=== PATIENT | female | born 1980 | race African-American/Black ===

== ENCOUNTER 2018-01-06 10:35 | Emergency (ER) | payer OTHER ==
[2018-01-06 10:46] VITALS: BP 100/84; PULSE 76; TEMP 98; BMI 22.3
[2018-01-06] MEDS ORDERED: IBUPROFEN 600 MG TABLET (FP) PO ONE ×2 (11:52→11:53)
--- NOTE | 2018-01-06 11:57 | PDOC ---
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 States is never suffered from pollen or seasonal ALLERGIES however feels may have onset of same. Has taken no medications for relief of any of her symptoms. Denies fever, ear pain or sore throat pain. States headache is primarily frontal and sinus- like. Has congestion that worsens at night when she lies down. Denies numbness or tingling to hands or feet, no vomiting, is not the worst headache of her life. 01/06/18 11:53 Severity: Yes: mild, moderate Associated Symptoms: reports: denies symptoms Past History - Travel Traveled outside of the country in the last 30 days: No Close contact w/someone who was outside of country & ill: No - Past Medical History Allergies/Adverse Reactions: Allergies Allergy/AdvReac Type Severity Reaction Status Date / Time No Known Allergies Allergy Verified 01/06/18 10:41 Home Medications: Ambulatory Orders Cetirizine HCl [All Day Allergy] 10 mg PO DAILY #30 tablet 01/06/18 COPD: No - Surgical History Cholecystectomy: Yes - Suicide/Smoking/Psychosocial Hx Smoking Status: No Smoking History: Never smoked Have you smoked in the past 12 months: No Number of Cigarettes Smoked Daily: 0 Information on smoking cessation initiated: No Hx Alcohol Use: No Drug/Substance Use Hx: No Substance Use Type: None Review of Systems - Review of Systems Able to Perform ROS?: Yes Is the patient limited Green[place]ic proficient: Yes Constitutional: Yes: Symptoms Reported, See HPI, Loss of Appetite, Malaise HEENTM: Yes: Symptoms Reported, Nose Congestion. No: Difficulty Swallowing, Mouth Swelling Respiratory: Yes: See HPI. No: Symptoms reported, Cough, Wheezing Musculoskeletal: Yes: Symptoms Reported Neurological: Yes: Symptoms reported, See HPI, Headache All Other Systems: Reviewed and Negative *Physical Exam - Vital Signs Last Vital Signs Temp Pulse Resp BP Pulse Ox 98.0 F 76 18 100/84 100 01/06/18 10:42 01/06/18 10:42 01/06/18 10:42 01/06/18 10:42 01/06/18 10:42 - Physical Exam General Appearance: Yes: Nourished, Appropriately Dressed, Apparent Distress, Mild Distress HEENT: positive: EBONY, TMs Normal (ingested but landmarks easily visualized), Pharynx Normal, Nasal Congestion, Rhinorrhea, Sinus Tenderness. negative: Normal ENT Inspection, Pharyngeal Erythema, Tonsillar Exudate Neck: positive: Supple. negative: Lymphadenopathy (R), Lymphadenopathy (L) Respiratory/Chest: positive: Lungs Clear, Normal Breath Sounds. negative: Wheezing Gastrointestinal/Abdominal: positive: Soft. negative: Tender Musculoskeletal: positive: Normal Inspection Extremity: positive: Normal Capillary Refill, Normal Inspection Integumentary: positive: Dry, Warm, Pale. negative: Normal Color Neurologic: positive: photoengraving helper II-XII NML intact, Fully Oriented, Alert, Normal Mood/ Affect, Normal Response, Motor Strength 5/5 Progress Note - Progress Note Progress Note: Fatigue and ALLERGIC rhinitis, we will recommend antihistamine use and ibuprofen for pain relief. Suggest ALLERGY testing and rest *DC/Admit/Observation/Transfer Diagnosis at time of Disposition: Allergic rhinitis Qualifiers: Allergic rhinitis trigger: pollen Allergic rhinitis seasonality: seasonal Qualified Code(s): J30.1 - Allergic rhinitis due to pollen - Discharge Dispostion Disposition: HOME Condition at time of disposition: Stable Decision to Admit order: No - Referrals Referrals: Manjit Cervantes MD [Staff Physician] - - Patient Instructions Printed Discharge Instructions: DI for Allergic Rhinitis Additional Instructions: Rest, drink lots of fluids: Teas, water, soups Saltwater gargles. Consider humidifier in room at night Steamy showers/seem to face break up mucus Avoid contact with allergens, exposure to pollens, close windows on a windy day Lots of handwashing and good hygiene Continue [id number] medications for symptomatic relief- may use allergic eyedrops for itching I Continue antihistamines daily until pollen season is over; Zyrtec, Claritin, Mely during the daytime and Benadryl at nighttime as will make sleepy Tylenol or Motrin for fever and pain Followup with private physician in one to 2 days as needed Consider following up with an farmworker/medical records coordinator for skin testing and possible allergy shots Return to emergency department for worsened symptoms, fevers, dehydration - Post Discharge Activity Forms/Work/School Notes: Back to Work
== END 2018-01-06 12:05 | disposition home or self-care (01) ==
LOC: JERFT 10:35
DX: J30.1 Allergic rhinitis due to pollen (principal)
CPT/HCPCS: 99281-25

== ENCOUNTER 2018-09-01 12:37 | Emergency (ER) | payer OTHER ==
[2018-09-01 12:47] VITALS: BP 114/86; PULSE 88; TEMP 98; BMI 30.2
--- NOTE | 2018-09-01 13:21 | PDOC ---
*Physical Exam - Vital Signs Last Vital Signs Temp Pulse Resp BP Pulse Ox 98.0 F 88 18 114/86 100 09/01/18 12:42 09/01/18 12:42 09/01/18 12:42 09/01/18 12:42 09/01/18 12:42 Medical Decision Making - Medical Decision Making 09/01/18 13:21 Pt seen by Midlevel Provider under my direct supervision Pt interviewed and examined Ancillary studies reviewed I agree with plan as outlined by Midlevel Provider *DC/Admit/Observation/Transfer - Referrals Referrals: Erik Cerna [Primary Care Provider] - - Patient Instructions - Post Discharge Activity
--- NOTE | 2018-09-01 14:06 | PDOC ---
History of Present Illness - General Chief Complaint: Vaginal Bleeding Stated Complaint: 8WKS,BLEEDING Time Seen by Provider: 09/01/18 13:18 History Source: Patient Exam Limitations: No Limitations - History of Present Illness Travel History: No Initial Comments: 09/01/18 14:00 38-year-old female currently 8 weeks presents to the emergency room with complaints of vaginal spotting since urinating this morning. Patient states that she found out she was 2 weeks ago and has had no care and denies any urinary complaints, back pain, abdominal pain, history of ectopic pregnancies, recent sexual intercourse, or vaginal discharge. Timing/Duration: reports: intermittent Aggravating Factors: improves with: None Alleviating Factors: improves with: None Past History - Past Medical History Allergies/Adverse Reactions: Allergies Allergy/AdvReac Type Severity Reaction Status Date / Time No Known Allergies Allergy Verified 09/01/18 12:40 Home Medications: Ambulatory Orders Cetirizine HCl [All Day Allergy] 10 mg PO DAILY #30 tablet 01/06/18 COPD: No - Surgical History Cholecystectomy: Yes - Immunization History Immunization Up to Date: Yes - Suicide/Smoking/Psychosocial Hx Smoking Status: No Smoking History: Never smoked Have you smoked in the past 12 months: No Number of Cigarettes Smoked Daily: 0 Hx Alcohol Use: No Drug/Substance Use Hx: No Substance Use Type: None Patient Lives Alone: No Lives with/in: spouse/SO Review of Systems - Review of Systems Able to Perform ROS?: Yes Constitutional: No: Symptoms Reported HEENTM: No: Symptoms Reported Respiratory: No: Symptoms reported Cardiac (ROS): No: Symptoms Reported ABD/GI: No: Symptoms Reported : Yes: Discharge Musculoskeletal: No: Symptoms Reported Integumentary: No: Symptoms Reported Neurological: No: Symptoms reported *Physical Exam - Vital Signs Last Vital Signs Temp Pulse Resp BP Pulse Ox 98.0 F 88 18 114/86 100 09/01/18 12:42 09/01/18 12:42 09/01/18 12:42 09/01/18 12:42 09/01/18 12:42 - Physical Exam General Appearance: Yes: Nourished, Appropriately Dressed. No: Apparent Distress HEENT: negative: Pale Conjunctivae Neck: positive: Supple Respiratory/Chest: positive: Lungs Clear, Normal Breath Sounds. negative: Respiratory Distress, Accessory Muscle Use Cardiovascular: positive: Regular Rhythm, Regular Rate. negative: Murmur Female Pelvic Exam: positive: normal external exam. negative: discharge, vaginal bleeding Gastrointestinal/Abdominal: positive: Soft. negative: Tenderness Extremity: positive: Normal Capillary Refill. negative: Pedal Edema Integumentary: positive: Normal Color, Warm, Moist Neurologic: positive: Motor Strength 5/5 (ambulatory) Moderate Sedation - Procedure Monitoring Vital Signs: Procedure Monitoring Vital Signs Temperature 98.0 F 09/01/18 12:42 Pulse Rate 88 09/01/18 12:42 Respiratory Rate 18 09/01/18 12:42 Blood Pressure 114/86 09/01/18 12:42 O2 Sat by Pulse Oximetry (%) 100 09/01/18 12:42 ED Treatment Course - LABORATORY CBC & Chemistry Diagram: 09/01/18 15:30 09/01/18 15:30 Medical Decision Making - Medical Decision Making 09/01/18 14:12 CC: vag spotting after urinating this am. 8 weeks . no w/u. Exam: No vaginal bleeding noted no abdominal tenderness vital signs stable Plan: Urine, labs, beta hCG 09/01/18 17:11 Laboratory Tests 09/01/18 09/01/18 09/01/18 15:30 15:30 16:30 WBC 11.3 H Hgb 14.6 Neutrophils % 66.7 D Beta HCG, Quant 42768.9 Blood Type O POSITIVE Patient sent to ultrasound 09/01/18 18:03 Ultrasound shows an intrauterine with a heart rate of 1 50 bpm. Patient will be discharged home to follow-up with her LEAD TECHNICIAN. 09/01/18 18:06 Laboratory Tests 09/01/18 15:11 Urine Ketones Negative Urine Blood 1+ H Ur Leukocyte Esterase Negative Urine WBC (Auto) 1 Urine RBC (Auto) <1 *DC/Admit/Observation/Transfer Diagnosis at time of Disposition: Vaginal bleeding during - Referrals Referrals: Eirk Cerna [Primary Care Provider] - - Patient Instructions Printed Discharge Instructions: DI for Vaginal Bleeding During Additional Instructions: At this time I recommend taking vitamins and following up with your OB /LEAD TECHNICIAN. - Post Discharge Activity
[2018-09-01 15:32] LABS: URINE APPEARANCE CLEAR; URINE BILIRUBIN NEGATIVE (<2.0 mg/dL); URINE COLOR LTYELLOW; URINE GLUCOSE (UA) NEGATIVE (NEGATIVE); URINE KETONE NEGATIVE (NEGATIVE); URINE LEUK ESTERASE NEGATIVE (NEGATIVE); URINE NITRITE NEGATIVE (NEGATIVE); URINE PROTEIN NEGATIVE (NEGATIVE); URINE UROBILINOGEN NEGATIVE mg/dL (0.2-1.0)
[2018-09-01 15:40] LABS: EPI CELLS RARE /HPF (FEW); URINE BACTERIA RARE /hpf (NONE SEEN); URINE MUCUS RARE
[2018-09-01 15:44] LABS: BASO % 0.4 % (0-2.0); EOS % 2.8 % (0-4.5); HEMATOCRIT 41.4 % (32.4-45.2); HEMOGLOBIN 14.6 GM/dL (10.7-15.3); LYMPH % 25.1 % (8-40); MCH 32.4 pg (25.7-33.7); MCHC 35.1 g/dl (32.0-36.0); MEAN CELL VOLUME 92.2 fl (80-96); NEUT % 66.7 % (42.8-82.8); PLATELET COUNT 220 K/MM3 (134-434); RBC 4.49 M/mm3 (3.60-5.2); RDW 13.2 % (11.6-15.6); WHITE BLOOD COUNT 11.3 K/mm3 (4.0-10.0)
[2018-09-01 16:35] LABS: ALBUMIN 3.7 g/dl (3.4-5.0); ALK PHOS 72 U/L (45-117); ANION GAP 7 MMOL/L (8-16); BILIRUBIN,TOTAL 0.4 mg/dL (0.2-1); BLOOD UREA NITROGEN 11 mg/dL (7-18); CALCIUM 8.9 mg/dL (8.5-10.1); CHLORIDE 104 mmol/L (98-107); CO2 27 mmol/L (21-32); CREATININE 0.6 mg/dL (0.55-1.3); GLUCOSE,RANDOM 97 mg/dL (74-106); POTASSIUM 4.2 mmol/L (3.5-5.1); SGOT/AST 17 U/L (15-37); SGPT/ALT 28 U/L (13-61); SODIUM 137 mmol/L (136-145); TOT PROT 7.1 g/dl (6.4-8.2)
== END 2018-09-01 18:22 | disposition home or self-care (01) ==
LOC: JER 12:37
DX: O26.891 Other specified pregnancy related conditions, first trimester (principal); O20.8 Other hemorrhage in early pregnancy; Z3A.08 8 weeks gestation of pregnancy
CPT/HCPCS: 36415; 76817-TC; 80053; 81003; 81015; 84702; 85025; 86850; 86900; 86901; 87086; 87186; 99282-25

== ENCOUNTER 2018-09-02 06:50 | Emergency (ER) | payer OTHER ==
[2018-09-02 07:24] VITALS: BP 107/71; PULSE 79; TEMP 98; BMI 30.2
--- NOTE | 2018-09-02 07:52 | PDOC ---
History of Present Illness - General Stated Complaint: VAGINAL BLEED/8WKS Time Seen by Provider: 09/02/18 07:24 History Source: Patient Exam Limitations: No Limitations - History of Present Illness Initial Comments: 09/02/18 07:55 Patient is a 38 year old female who presents here today for complaints of worsening vaginal bleeding associated with lower abdominal pressure. Patient was here yesterday for vaginal spotting and had a transvaginal U/S that was read by imaging explosion welder and showed IUG of 6 weeks with cervix closed, heart rate 150BPM and cervix closed. Patient reports this morning around 0200 she continued to have vaginal bleeding and new onset of lower abdominal pressure, which prompted this hospital visit. Otherwise, patient denies any fever, chills, nausea, vomiting, chest pain, palpitations, shortness of breath, headaches, dizziness, acute vision changes. OBGYN Hx: LMP 06/19/18 No STD's, PID, or ectopic pregnancies Denies any spontaneous abortions in the past 3 C-sections PMHx: Denies PSHx: Cholecystectomy C-sections x3 Social Hx: Denies smoking Denies drug use Denies alcohol use Past History - Past Medical History Allergies/Adverse Reactions: Allergies Allergy/AdvReac Type Severity Reaction Status Date / Time No Known Allergies Allergy Verified 09/01/18 12:40 Home Medications: Ambulatory Orders Vit 108/Iron/Folic AC [ One Tablet] 1 each PO DAILY 09/02/18 Vitamin E 0 unit PO DAILY 09/02/18 COPD: No - Surgical History Cholecystectomy: Yes - Immunization History Immunization Up to Date: Yes - Suicide/Smoking/Psychosocial Hx Smoking Status: No Smoking History: Never smoked Have you smoked in the past 12 months: No Number of Cigarettes Smoked Daily: 0 Information on smoking cessation initiated: No Hx Alcohol Use: No Drug/Substance Use Hx: No Substance Use Type: None Review of Systems - Review of Systems Constitutional: No: Chills, Diaphoresis, Fever Respiratory: No: Cough, Shortness of Breath, Wheezing, Productive cough Cardiac (ROS): No: Chest Pain, Palpitations, Syncope, Chest Tightness ABD/GI: Yes: Other (lower abdominal pressure ). No: Diarrhea, Nausea, Abdominal cramping : Yes: Other (Vaginal bleeding ). No: Burning, Dysuria, Discharge Musculoskeletal: No: Back Pain, Muscle Weakness Integumentary: No: Bruising, Erythema Neurological: No: Headache, Numbness, Tingling, Tremors *Physical Exam - Vital Signs Last Vital Signs Temp Pulse Resp BP Pulse Ox 98 F 79 20 107/71 100 09/02/18 07:22 09/02/18 07:22 09/02/18 07:22 09/02/18 07:22 09/02/18 07:22 - Physical Exam General Appearance: Yes: Other (Awake, alert, oriented x3, in no acute distress ) HEENT: positive: EBONY, Normal ENT Inspection, Normal Voice, Symmetrical Respiratory/Chest: positive: Lungs Clear, Normal Breath Sounds. negative: Chest Tender, Respiratory Distress, Accessory Muscle Use Cardiovascular: positive: Regular Rhythm, Regular Rate, S1, S2. negative: Edema , JVD, Murmur Female Pelvic Exam: positive: vaginal bleeding, other (Unable to visualize cervix due to vaginal clotting ) Gastrointestinal/Abdominal: positive: Normal Bowel Sounds, Soft. negative: Organomegaly, Distended, Rebound, Tenderness Musculoskeletal: positive: Normal Inspection. negative: CVA Tenderness, CVA Tenderness (R), CVA Tenderness (L), Decreased Range of Motion Extremity: positive: Normal Capillary Refill, Normal Inspection, Normal Range of Motion Integumentary: negative: Erythema, Rash, Swelling Neurologic: positive: lead generation marketing manager II-XII NML intact, Fully Oriented, Alert, Normal Mood/ Affect, Normal Response Moderate Sedation - Procedure Monitoring Vital Signs: Procedure Monitoring Vital Signs Temperature 98 F 09/02/18 07:22 Pulse Rate 79 09/02/18 07:22 Respiratory Rate 20 09/02/18 07:22 Blood Pressure 107/71 09/02/18 07:22 O2 Sat by Pulse Oximetry (%) 100 09/02/18 07:22 ED Treatment Course - LABORATORY CBC & Chemistry Diagram: 09/02/18 08:45 09/02/18 08:45 Medical Decision Making - Medical Decision Making 09/02/18 08:38 Patient is a 38 year old female , 6 weeks who presents here today for vaginal bleeding and lower abdominal pressure. Patient was seen yesterday for vaginal bleeding with transvaginal U/S showing IUG at 6 weeks with HR @150 BPM, according to imaging explosion welder read. Patient returned today for worsening vaginal bleeding and new onset of lower abdominal pressure. On pelvic examination, upon placing the speculum, patient had passage of two large clots. DDx includes but not limited to spontaneous vs. threatened , -Transvaginal U/S ordered -BCG quant ordered -CBC and CMP ordered 09/02/18 10:05 -Transvaginal U/S revealed no evidence of pole or yolk sac, compatible with in progress. -Labs pending 09/02/18 10:09 -Patient reports lower abdominal pain -IV Tylenol ordered 09/02/18 11:09 -Patients labs unremarkable -Spoke to patient and recommended she follows up with her OBGYN this week. Recommended bed rest and for repeat U/S within a week. -Patient to be discharged *DC/Admit/Observation/Transfer Diagnosis at time of Disposition: Vaginal bleeding affecting early , Spontaneous - Discharge Dispostion Disposition: HOME Condition at time of disposition: Stable Decision to Admit order: No - Referrals Referrals: Erik Cerna [Primary Care Provider] - - Patient Instructions Additional Instructions: -You were seen here for vaginal bleeding and found to have a miscarriage on Ultrasound -You will experience vaginal bleeding and spotting for at least a week and should follow up with your OBGYN this week. -We recommend you have an Ultrasound in a week at your OBGYN's office. -Recommend bed rest and lots of hydration -If you continue to have excessive and uncontrollable bleeding, return to the emergency department - Post Discharge Activity Forms/Work/School Notes: Back to Work
--- NOTE | 2018-09-02 08:02 | PDOC ---
Attending Attestation - Resident Resident Name: MachozaneRadha - ED Attending Attestation I have performed the following: I have examined & evaluated the patient, The case was reviewed & discussed with the resident, I agree w/resident's findings & plan, Exceptions are as noted - HPI HPI: 09/02/18 07:57 38 F presenting with vaginal bleeding and cramps. Pt states she started spotting yesterday. Came here for evaluation and had TVUS that showed live IUP @ 6 weeks. However, today pt states the bleeding increased and pt began to have cramping. In ED, pt passed a large clot. - Physicial Exam PE: 09/02/18 08:02 "GENERAL: Awake, alert, and fully oriented, in no acute distress. HEAD: No signs of trauma EYES: PERRLA, EOMI, sclera anicteric, conjunctiva clear ENT: Auricles normal inspection, hearing grossly normal, nares patent, oropharynx clear without exudates. Moist mucosa NECK: Nontender, no stepoffs, Normal ROM, supple, no lymphadenopathy, JVD, or masses LUNGS: Breath sounds equal, clear to auscultation bilaterally. No wheezes, and no crackles HEART: Regular rate and rhythm, normal S1 and S2, no murmurs, rubs or gallops ABDOMEN: Soft, + suprapubic TTP, normoactive bowel sounds. No guarding, no rebound. No masses EXTREMITIES: Normal range of motion, no edema. No clubbing or cyanosis. No cords, erythema, or tenderness NEUROLOGICAL: Cranial nerves II through XII intact. 5/5 strength and sensation in all extremities, Normal speech, normal gait, normal cerebellar function SKIN: Warm, Dry, normal turgor, no rashes or lesions noted. : + clots in vault, os open, no CMT, no adnexal masses or tenderness - Medical Decision Making 09/02/18 08:02 38 F @ 6 weeks by US yesterday presenting with increased bleeding and cramps with passage of large clot in ED. Concerning for spontaneous Ab. - Repeat labs, HCG - TVUS 09/02/18 09:27 TVUS consistent with Pt informed of results, counseled on f/u with OB 09/02/18 11:01 Labs unremarkable. Pt is well appearing, with normal vitals. Clinically stable for DC at this time. I discussed the physical exam findings, ancillary test results and final diagnoses with the patient. I answered all of the patient's questions. The patient was satisfied with the care received and felt comfortable with the discharge plan and treatment plan. The patient agrees to follow up with the primary care physician within 24-72 hours.
[2018-09-02] MEDS ORDERED: ACETAMINOPHEN 1000 MG/100 ML VIAL (NON FORMULARY) IVPB ONE (10:00)
[2018-09-02] MEDS ORDERED: ACETAMINOPHEN INJECTION 100 ML IVPB ONE (10:03)
[2018-09-02 10:51] LABS: BLOOD UREA NITROGEN 13 mg/dL (7-18); CREATININE 0.7 mg/dL (0.55-1.3); GLUCOSE,RANDOM 92 mg/dL (74-106); SODIUM 137 mmol/L (136-145)
[2018-09-02 10:52] LABS: ALBUMIN 3.4 g/dl (3.4-5.0); ANION GAP 8 MMOL/L (8-16); BILIRUBIN,TOTAL 0.3 mg/dL (0.2-1); CALCIUM 8.7 mg/dL (8.5-10.1); CHLORIDE 106 mmol/L (98-107); CO2 23 mmol/L (21-32); TOT PROT 7.1 g/dl (6.4-8.2)
[2018-09-02 10:53] LABS: ALK PHOS 66 U/L (45-117); POTASSIUM 5.5 mmol/L (3.5-5.1); SGOT/AST 59 U/L (15-37); SGPT/ALT 28 U/L (13-61)
[2018-09-02 14:41] LABS: BASO % 0.8 % (0-2.0); HEMATOCRIT 38.3 % (32.4-45.2); HEMOGLOBIN 13.5 GM/dL (10.7-15.3); LYMPH % 18.2 % (8-40); MCH 32.7 pg (25.7-33.7); MCHC 35.3 g/dl (32.0-36.0); MEAN CELL VOLUME 92.7 fl (80-96); MONO % 5.9 % (3.8-10.2); NEUT % 73.1 % (42.8-82.8); RBC 4.13 M/mm3 (3.60-5.2); RDW 13.2 % (11.6-15.6); WHITE BLOOD COUNT 11.1 K/mm3 (4.0-10.0)
[2018-09-02 15:50] LABS: MEAN PLT VOLUME 10.1 fl (7.5-11.1); PLATELET COUNT 227 K/MM3 (134-434)
== END 2018-09-02 11:51 | disposition home or self-care (01) ==
LOC: JER 06:50
DX: O26.891 Other specified pregnancy related conditions, first trimester (principal); O03.4 Incomplete spontaneous abortion without complication; Z3A.01 Less than 8 weeks gestation of pregnancy
CPT/HCPCS: 36415; 76830-TC; 80053; 84702; 85025; 99282-25; J0131

== ENCOUNTER 2021-08-02 06:30 | Inpatient (IN) | payer OTHER ==
[2021-08-02] MEDS ORDERED: CITRIC ACID/SODIUM CITRATE 30 ML UNIT-DOSE CUP PO ONE (06:40)
[2021-08-02] MEDS ORDERED: ELECTROLYTE-148 SOLN 500 ML IV ONE (06:40)
[2021-08-02] MEDS ORDERED: ELECTROLYTE-148 SOLN 1,000 ML IV SCH ×2 (07:10→10:45)
[2021-08-02 08:15] VITALS: BMI 37.2
[2021-08-02] MEDS ORDERED: morphine SULFATE (PF) 1 MG/2 ML SYRINGE ONE (08:19)
[2021-08-02] MEDS ORDERED: ONDANSETRON 4 MG/2 ML VIAL ONE (08:49)
[2021-08-02] MEDS ORDERED: KETOROLAC TROMETHAMINE 30 MG/1 ML VIAL ONE (08:49)
[2021-08-02] MEDS ORDERED: PHENYLEPHRINE HCL 10 MG/1 ML SINGLE DOSE VIAL ONE (08:49)
[2021-08-02] MEDS ORDERED: ceFAZolin SODIUM 1 GM VIAL ONE (08:49)
[2021-08-02] MEDS ORDERED: OXYTOCIN 10 UNITS/ML VIAL ONE ×2 (08:49→09:41)
[2021-08-02] MEDS ORDERED: ePHEDrine SULFATE 50 MG/1 ML AMPULE ONE (08:50)
[2021-08-02 09:46] LABS: CORD BASE EXCESS -1.5 mmol/L (0-2); CORD HCO3 25.3 mmHg (20-29); CORD PCO2 50.2 mmHg (30-78); CORD pH 7.32 (7.14-7.44)
[2021-08-02 09:48] LABS: CORD PCO2 57.5 mmHg (30-78); CORD pH 7.239 (7.14-7.44)
[2021-08-02] MEDS ORDERED: morphine SULFATE/PF 1 MG/2 ML (2cc Syringe - QUVA) SPIN ONE (10:21)
[2021-08-02] MEDS ORDERED: ONDANSETRON 4 MG/2 ML VIAL IVPUSH PRN (10:21)
[2021-08-02] MEDS ORDERED: ACETAMINOPHEN 1000 MG/100 ML VIAL IVPB ONE (10:24)
[2021-08-02] MEDS ORDERED: ACETAMINOPHEN INJECTION 100 ML IVPB ONE (10:40)
[2021-08-02] MEDS ORDERED: METHYLERGONOVINE MALEATE 0.2 MG/1 ML AMP IM PRN (11:00)
[2021-08-02] MEDS ORDERED: BENZOCAINE 28 GM HEMORRHOIDAL OINTMENT TP PRN (11:00)
[2021-08-02] MEDS ORDERED: ACETAMINOPHEN 325 MG TABLET (FP) PO PRN ×2 (11:00→16:30)
[2021-08-02] MEDS ORDERED: OXYTOCIN 20 UNITS in 0.9% NS 20 UNIT/1,000 ML INFUS.BAG IV SCH (11:00)
[2021-08-02] MEDS ORDERED: IBUPROFEN 800 MG/8 ML IJ IVPB PRN (11:00)
[2021-08-02] MEDS ORDERED: WITCH HAZEL 50% (TUCKS) 40 PAD/JAR PAD TP PRN (11:00)
[2021-08-02] MEDS ORDERED: oxyCODONE HCL 5 MG TABLET PO PRN (23:00)
[2021-08-03] MEDS: IBUPROFEN 600 MG TABLET (FP) PO PRN ×2 (05:41→20:38)
[2021-08-03] MEDS: SIMETHICONE 80 MG TAB.CHEW (FP) PO PRN ×2 (05:42→20:38)
[2021-08-03 08:21] LABS: BASO % 0.3 % (0-2.0); EOS % 1.1 % (0-4.5); HEMATOCRIT 37.5 % (32.4-45.2); HEMOGLOBIN 12.7 GM/dL (10.7-15.3); LYMPH % 12.1 % (8-40); MCH 32.6 pg (25.7-33.7); MEAN CELL VOLUME 95.8 fl (80-96); MEAN PLT VOLUME 8.9 fl (7.5-11.1); MONO % 7.7 % (3.8-10.2); NEUT % 78.8 % (42.8-82.8); PLATELET COUNT 169 10^3/uL (134-434); RBC 3.91 M/mm3 (3.60-5.2); RDW 13.1 % (11.6-15.6); WHITE BLOOD COUNT 14.1 K/mm3 (4.0-10.0)
[2021-08-03] MEDS: PRENATAL VITAMINS W/ FOLIC ACID TABLET (FP) PO SCH (10:31)
[2021-08-03] MEDS: ENOXAPARIN NA (PORCINE) 40 MG/0.4 ML DISP.SYRIN SQ SCH (10:31)
[2021-08-03] MEDS ORDERED: BISACODYL 10 MG SUPP.RECT RC PRN (11:00)
[2021-08-04] MEDS: IBUPROFEN 600 MG TABLET (FP) PO PRN ×3 (00:50→20:45)
[2021-08-04] MEDS: SIMETHICONE 80 MG TAB.CHEW (FP) PO PRN ×4 (00:51→20:46)
[2021-08-04] MEDS: PRENATAL VITAMINS W/ FOLIC ACID TABLET (FP) PO SCH (09:35)
[2021-08-04] MEDS: ENOXAPARIN NA (PORCINE) 40 MG/0.4 ML DISP.SYRIN SQ SCH (09:36)
[2021-08-05 07:57] LABS: BASO % 0.4 % (0-2.0); HEMOGLOBIN 11.9 GM/dL (10.7-15.3); LYMPH % 18.7 % (8-40); MCH 33.5 pg (25.7-33.7); MCHC 35.1 g/dl (32.0-36.0); MEAN CELL VOLUME 95.7 fl (80-96); MEAN PLT VOLUME 8.2 fl (7.5-11.1); MONO % 10.1 % (3.8-10.2); NEUT % 65.8 % (42.8-82.8); PLATELET COUNT 183 10^3/uL (134-434); RBC 3.55 M/mm3 (3.60-5.2); WHITE BLOOD COUNT 10.8 K/mm3 (4.0-10.0)
[2021-08-05] MEDS: IBUPROFEN 600 MG TABLET (FP) PO PRN (08:30)
[2021-08-05] MEDS: SIMETHICONE 80 MG TAB.CHEW (FP) PO PRN (08:31)
[2021-08-05] MEDS: ENOXAPARIN NA (PORCINE) 40 MG/0.4 ML DISP.SYRIN SQ SCH (11:05)
[2021-08-05] MEDS: PRENATAL VITAMINS W/ FOLIC ACID TABLET (FP) PO SCH (11:05)
[2021-08-05 12:01] VITALS: BP 116/72; PULSE 88; TEMP 98.3
== END 2021-08-05 14:20 | disposition home or self-care (01) | DRG 540 ==
LOC: JLDR 06:30 → J3W 11:10
PROVIDERS: ADMIT Obstetrics & Gynecology; ATTEND Obstetrics & Gynecology
PROC: 10D00Z1 Extraction of Products of Conception, Low, Open Approach (ICD-10-PCS; principal; 2021-08-02)
DX: O34.211 Maternal care for low transverse scar from previous cesarean delivery (principal); Z37.0 Single live birth; Z3A.39 39 weeks gestation of pregnancy
CPT/HCPCS: 36415; 36600; 82803; 85025; 88307-TC; J0131